=== PATIENT | female | born 1960 | race Caucasian/White ===

== ENCOUNTER 2019-01-09 13:14 | Outpatient (CLI) | payer OTHER ==
[~2019-01-09 13:14] MED LIST: AMBIEN10 MG; CLONAZEPAM1 GM; NEURONTIN300 MG; VISTARIL50 MG PO
== END 2019-01-09 13:22 | disposition home or self-care (01) ==
LOC: RAD 501 13:14
DX: M77.32 Calcaneal spur, left foot (principal); M77.31 Calcaneal spur, right foot

== ENCOUNTER 2019-06-15 14:36 | Outpatient (CLI) | payer OTHER | END 2019-06-15 14:49 | disposition home or self-care (01) | LOC: NUCLEAR 14:36 | DX: M81.0 Age-related osteoporosis without current pathological fracture (principal) ==

== ENCOUNTER 2019-09-25 13:42 | Outpatient (CLI) | payer OTHER | END 2019-09-25 13:46 | disposition home or self-care (01) | LOC: RAD 13:42 | DX: M54.16 Radiculopathy, lumbar region (principal); M53.0 Cervicocranial syndrome; M54.2 Cervicalgia; M41.20 Other idiopathic scoliosis, site unspecified; M54.17 Radiculopathy, lumbosacral region; M51.36 Other intervertebral disc degeneration, lumbar region; M51.37 Other intervertebral disc degeneration, lumbosacral region; M54.14 Radiculopathy, thoracic region ==